=== PATIENT | female | born 1995 | race Caucasian/White ===

== ENCOUNTER 2023-11-26 15:32 | Outpatient (REF) | payer OTHER, SELFPAY ==
[2023-11-29 07:23] LABS: TS Negative Control Passed; TS Panel A 3; TS Panel B 1; TS Positive Control Passed; TSpotTB Negative (Negative)
[2023-11-29 21:57] LABS: Hepatitis BE Antibody NON-REACTIVE (NON-REACTIVE)
== END 2023-11-26 15:33 | disposition home or self-care (01) ==
LOC: HO.HKASLDS 15:32
PROVIDERS: Visit Provider Internal Medicine
DX: Z01.84 Encounter for antibody response examination (principal)
CPT/HCPCS: 36415; 86481; 86707; 86787

== ENCOUNTER 2023-12-06 13:54 | Outpatient (REF) | payer OTHER, SELFPAY ==
[2023-12-06 16:45] LABS: Amphetamine Screen Urine Not Detected (Not Detect); Barbiturates, Urine Not Detected (Not Detect); Benzodiazepines Screen Urine Not Detected (Not Detect); Buprenorphine Scr Not Detected (Not Detect); Cannabinoid Screen Urine Not Detected (Not Detect); Cocaine Screen Urine Not Detected (Not Detect); Fentanyl, urine Not Detected (Not Detect); Methadone Screen, Urine Not Detected (Not Detect); Opiate Screen Urine Not Detected (Not Detect); Oxycodone Screen Urine Not Detected (Not Detect); Phencyclidine Screen Urine Not Detected (Not Detect)
== END 2023-12-06 13:55 | disposition home or self-care (01) ==
LOC: HO.HMGCLDS 13:54
PROVIDERS: PCP Internal Medicine; Visit Provider Internal Medicine
DX: Z02.1 Encounter for pre-employment examination (principal); Z01.84 Encounter for antibody response examination
CPT/HCPCS: 80307; 86735; 86762; 86765

== ENCOUNTER 2024-05-11 09:43 | Outpatient (AMB) | payer OTHER, SELFPAY ==
--- NOTE | 2024-05-11 10:14 | A.OFFPC_ITS ---
Vital Signs 05/11/24 10:31 Height 5 ft 2 in Weight 227 lb BMI 41.5 BP 126/88 Blood Pressure Location Lt brachial Position Sitting Pulse 90 Pulse Source Pulse Oximeter Pulse Oximetry (%) 98 Oxygen Delivery Method Room Air Intake Visit Reasons: HOSPITAL [facility]ER-ANNUAL PE Intake Note: New patient visit Quarrying Specialist Required: No Allergies cat dander Allergy (Mild, Verified 05/11/24 10:15) congestion dog dander Allergy (Mild, Verified 05/11/24 10:15) congestion mold Allergy (Mild, Verified 05/11/24 10:15) congestion grass pollen Allergy (Unknown, Verified 05/11/24 10:15) Unknown house dust Allergy (Verified 05/11/24 10:15) congestion nuts Allergy (Unknown, Uncoded 05/11/24 10:15) Unknown Tobacco use date assessed: 05/11/24 Dental Screening Dental Screen Date: 05/11/24 Did you have a dental visit in the last 12 months?: No Did you have a dental problem in the last 6 months where you did not have access to dental care?: Yes Was dental information given to patient?: Patient has dentist HPI HPI Comments History of Present Illness Details 28 year old female with a past medical h istory of asthma, obesity, crohns, obesity presenting for physical exam. transfer from [facility] Asthma: Following with Dr Santizo. On trelegy, qvar, singulair, albuterol as needed Obesity: On phentermine 37.5mg daily. GI: Followed closely by GI. On azathioprine. Recommended dermatology appt. She does complain of chronic hyperhidrosis. 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 HEENT: Denies changes in vision and hearing. RESPIRATORY: Denies SOB and cough. CV: Denies palpitations and CP GI: Denies abdominal pain, nausea, vomiting and diarrhea. : Denies dysuria and urinary frequency. MSK: Denies new myalgia and joint pain. SKIN: Denies rash and pruritus. NEUROLOGICAL: Denies headache PSYCHIATRIC: Denies recent changes in mood. PHYSICAL EXAM: GENERAL: Alert and oriented x 3. NAD EYES: EOMI. Anicteric. HENT: Moist mucous membranes. No scleral icterus. No cervical lymphadenopathy. LUNGS: Clear to auscultation bilaterally. CARDIOVASCULAR: Regular rate and rhythm. No murmur. No JVD. ABDOMEN: Soft, non-tender +bs EXTREMITIES: No edema. Non-tender. SKIN: No rashes or lesions. Warm. NEUROLOGIC: No focal neurological deficits. CN II-XII grossly intact PSYCHIATRIC: Cooperative. Appropriate mood and affect [facility] Medical History (Updated 05/11/24 @ 15:15 by Oralia Multani MD) Perianal fistula Ileostomy in place Crohn disease C. difficile colitis Family History (Updated 05/11/24 @ 10:31 by Doris Alas [facility]) Mother Diabetes Hypertension Anxiety Depression Father Cancer Stroke Brother Mental disability Other FH: mental illness Social History (Updated 11/20/23 @ 12:30 by Lakia Tyler [facility]) Housing: Condominium Alcohol intake: current Alcohol intake frequency: a few times a month Patient Tobacco Use Status: Never used Tobacco e-Cigarette/Vaping Use: Never Used service: No Current occupational status: student Gender identity: Female Cognitive needs: No Hearing needs: No Vision needs: No Questionnaire PHQ-9 Over the last 2 weeks, how often have you been bothered by any of the following problems? 1. Little interest or pleasure in doing things: not at all 2. Feeling down, depressed, or hopeless: not at all 3. Trouble falling or staying asleep, or sleeping too much: several days 4. Feeling tired or having little energy: more than half the days 5. Poor appetite or overeating: not at all 6. Feeling bad about yourself - or that you are a failure or have let yourself or your family down: not at all 7. Trouble concentrating on things, such as reading the newspaper or watching television: not at all 8. Moving or speaking so slowly that other people could have noticed. Or the opposite - being so fidgety or restless that you have been moving around a lot more than usual: not at all 9. Thoughts that you would be better off or of hurting yourself in some way: not at all Total score: 3 Depression Screening Interpretation: Negative Depression Screening Done: Yes [id number] - PHQ-9 Billing: Yes Source: Developed by Drs. Federico Gandara, Lizzette Garcia, Natan Elizabeth and colleagues, with an educational shanita from [employer]. Thrive Questionnaire Date Thrive assessed: 05/08/24 I am a: Patient What is your living situation today?: I have a steady place to live Within the past 12 months, did the food you bought not last and you didn't have the money to get more?: Never true Within the past 12 months, did you worry whether your food would run out before you got money to buy more?: Never true Do you have trouble paying for medicines?: No Do you have trouble getting transportation to medical appointments?: No Do you have trouble paying your heating and electricity bill?: No Do you have trouble taking care of your child, family member or friend?: No Do you have trouble with day-to-day activities such as bathing, preparing meals, shopping, managing finances, etc.?: No Are you currently unemployed and looking for a job?: No Are you interested in more education?: No Please select the resources that you would like help with: None Currently or been in a relationship where the following occur: No concerns reported THRIVE Score: 0 AUDIT C Alcohol Use Questionnaire (AUDIT-C) 1. How often do you have a drink containing alcohol?: Monthly or less 2. How many drinks containing alcohol do you have on a typical day when you are drinking?: 1 or 2 3. How often do you have six or more drinks on one occasion?: Never Total Score: 1 MATT-7 AMB Questionnaire MATT-7 Feeling nervous, anxious, or on edge: 1 = Several days Not being able to stop or control worryin = Not at all Worrying too much about different things: 0 = Not at all Trouble relaxin = Several days Being so restless that it is hard to sit still: 0 = Not at all Becoming easily annoyed or irritable: 0 = Not at all Feeling afraid as if something awful might happen: 0 = Not at all Total MATT-7 score (0-4 normal; 5-9 mild; 10-14 moderate; 15-21 severe): 2 Source: Developed by Drs. Federico Gandara, Lizzette Garcia, Natan Elizabeth and colleagues, with an educational shanita from [employer]. ACT Questionnaire In the past 4 weeks, how much of the time did your asthma keep you from getting as much done at work, school or at home?: A little of the time During the past 4 weeks, how often have you had shortness of breath?: 1-2 times a week During the past 4 weeks, how often did your asthma symptoms wake you up at night or earlier than usual in the morning?: Not at all During the past 4 weeks, how often have you had to use your rescue inhaler or nebulizer medication?: 1-2 times a week How would you rate your asthma control during the past 4 weeks?: Well controlled ACT Interpretation: Positive Score: 19 Physical exam (Primary Care) Vital Signs: Last Vital Signs Pulse 90 05/11/24 10:31 BP 126/88 05/11/24 10:31 Pulse Ox 98 05/11/24 10:31 Oxygen Delivery Method Room Air 05/11/24 10:31 BMI result Body Mass Index 41.5 Tobacco/Smoking Status: Tobacco use Status Tobacco use date assessed 05/11/24 05/11/24 10:17 Patient Tobacco Use Status Never used Tobacco 05/11/24 10:15 e-Cigarette/Vaping Use Never Used 05/11/24 10:15 PHQ-9: PHQ-9 Score PHQ-9: Total score 3 05/11/24 15:09 Depression Screening Interpretation: Negative Thrive Assessment: Date of Thrive Assessment Date Thrive assessed 05/08/24 05/11/24 10:15 Currently or been in a relationship where the following occur: No concerns reported Coding Level of Care Code Est Pt Prev Care 18-39y([id number]) Diagnoses Physical exam Z00.00 Moderate persistent asthma without complication J45.40 Asthma complication type: uncomplicated Additional Codes Asthma Control Questionnaire - ACT Interpretation: Positive ([id number]) PHQ-9 - 49460 - PHQ-9 Billing: Yes ([id number]) Assessment & Plan Assessment & Plan (1) Physical exam: Code(s): Z00.00 - Encounter for general adult medical examination without abnormal findings Category: Medical Plan: Preventive measures discussed UTD (2) Moderate persistent asthma: Code(s): J45.40 - Moderate persistent asthma, uncomplicated Category: Medical Qualifiers: Asthma complication type: uncomplicated Qualified Code(s): J45.40 - Moderate persistent asthma, uncomplicated Plan: without exacerbation. stable on current medications Orders: Referrals Dermatology Referral R61 - Generalized hyperhidrosis, Z51.81 - Encounter for therapeutic drug level monitoring Medications: New montelukast 10 mg PO DAILY 90 tabs 3RF propranolol 10 mg PO BID 180 tabs 0RF ondansetron HCl 4 mg PO Q8H PRN 30 tabs 3RF nausea and vomiting aluminum chloride 20% (Drysol) 1 appl topical DAILY PRN 37.5 mL 3RF excessive sweating
[2024-05-11 10:31] VITALS: BP 126/88; PULSE 90; O2SAT 98; BMI 41.5
== END 2024-05-11 10:53 | disposition home or self-care (01) ==
PROVIDERS: PCP Internal Medicine; Visit Provider Internal Medicine
DX: Z00.00 Encounter for general adult medical examination without abnormal findings (principal); J45.40 Moderate persistent asthma, uncomplicated

== ENCOUNTER → 2024-05-11 09:43 | Outpatient (BNVA) | payer OTHER, SELFPAY | PROVIDERS: PCP Internal Medicine; Visit Provider Internal Medicine | DX: Z00.00 Encounter for general adult medical examination without abnormal findings (principal); J45.40 Moderate persistent asthma, uncomplicated; R61 Generalized hyperhidrosis | CPT/HCPCS: 96127; 96160 ==

== ENCOUNTER 2024-12-04 09:33 | Outpatient (AMB) | payer OTHER, SELFPAY ==
--- NOTE | 2024-12-04 09:37 | A.OFFPC_ITS ---
Vital Signs 12/04/24 09:41 Height 5 ft 2 in Weight 237 lb BMI 43.3 BP 126/86 Blood Pressure Location Lt brachial Position Sitting Respiration 14 Pulse 84 Pulse Source Pulse Oximeter Pulse Oximetry (%) 98 Oxygen Delivery Method Room Air Intake Visit Reasons: f/up Intake Note: Follow up. Stopped taking phentermine and propanolol on 09/16. Had surgery on 09/23 and was asked to stop phetermine, and never restarted. Had ileostomy prolapse revision Medical Delivery Driver Required: No Allergies cat dander Allergy (Mild, Verified 05/11/24 10:15) congestion dog dander Allergy (Mild, Verified 05/11/24 10:15) congestion mold Allergy (Mild, Verified 05/11/24 10:15) congestion grass pollen Allergy (Unknown, Verified 05/11/24 10:15) Unknown house dust Allergy (Verified 05/11/24 10:15) congestion nuts Allergy (Unknown, Uncoded 05/11/24 10:15) Unknown Tobacco use date assessed: 05/11/24 Dental Screening Dental Screen Date: 05/11/24 HPI HPI Comments History of Present Illness Details 29 year old female with a past medical h istory of asthma, obesity, crohns, obesity presenting for follow up Asthma: Following with Dr Santizo. On trelegy, qvar, singulair, albuterol as needed. Wants her to try trespire injection. Obesity: She was taking phentermine 37.5mg daily. Stopped prior to iliostomy revision. did not restart. Would like to try GLP if ok'd by GI GI: Followed closely by GI & surgery. She does complain of chronic hyperhidrosis. Had iliostomy revision surgery. On levsin prn Dermatology appt is pending Received flu vaccination ROS CONSTITUTIONAL: Denies weight loss, fever and chills. HEENT: Denies changes in vision and hearing. RESPIRATORY: Denies SOB and cough. CV: Denies palpitations and CP GI: Denies abdominal pain, nausea, vomiting and diarrhea. : Denies dysuria and urinary frequency. MSK: Denies new myalgia and joint pain. SKIN: Denies rash and pruritus. NEUROLOGICAL: Denies headache PSYCHIATRIC: anxiety PHYSICAL EXAM: GENERAL: Alert and oriented x 3. NAD EYES: EOMI. Anicteric. HENT: Moist mucous membranes. No scleral icterus. No cervical lymphadenopathy. LUNGS: Clear to auscultation bilaterally. CARDIOVASCULAR: Regular rate and rhythm. No murmur. No JVD. ABDOMEN: Soft, non-tender +bs EXTREMITIES: No edema. Non-tender. SKIN: No rashes or lesions. Warm. NEUROLOGIC: No focal neurological deficits. CN II-XII grossly intact PSYCHIATRIC: Cooperative. Appropriate mood and affect [facility] Medical History Perianal fistula Ileostomy in place Crohn disease C. difficile colitis Family History Mother Diabetes Hypertension Anxiety Depression Father Cancer Stroke Brother Mental disability Other FH: mental illness Social History Housing: Condominium Alcohol intake: current Alcohol intake frequency: a few times a month Patient Tobacco Use Status: Never used Tobacco e-Cigarette/Vaping Use: Never Used service: No Current occupational status: student Gender identity: Female Cognitive needs: No Hearing needs: No Vision needs: No Questionnaire Thrive Questionnaire Date Thrive assessed: 05/08/24 I am a: Patient What is your living situation today?: I have a steady place to live Within the past 12 months, did the food you bought not last and you didn't have the money to get more?: Never true Within the past 12 months, did you worry whether your food would run out before you got money to buy more?: Never true Do you have trouble paying for medicines?: No Do you have trouble getting transportation to medical appointments?: No Do you have trouble paying your heating and electricity bill?: No Do you have trouble taking care of your child, family member or friend?: No Do you have trouble with day-to-day activities such as bathing, preparing meals, shopping, managing finances, etc.?: No Are you currently unemployed and looking for a job?: No Are you interested in more education?: No Please select the resources that you would like help with: None Currently or been in a relationship where the following occur: No concerns reported THRIVE Score: 0 Physical exam (Primary Care) Vital Signs: Last Vital Signs Pulse 84 12/04/24 09:41 Resp 14 12/04/24 09:41 BP 126/86 12/04/24 09:41 Pulse Ox 98 12/04/24 09:41 Oxygen Delivery Method Room Air 12/04/24 09:41 BMI result Body Mass Index 43.3 Tobacco/Smoking Status: Tobacco use Status Tobacco use date assessed 05/11/24 12/04/24 09:44 Patient Tobacco Use Status Never used Tobacco 12/04/24 09:44 e-Cigarette/Vaping Use Never Used 12/04/24 09:44 Thrive Assessment: Date of Thrive Assessment Date Thrive assessed 05/08/24 12/04/24 09:44 Currently or been in a relationship where the following occur: No concerns reported Coding Level of Care Code Est Pt Level 4 (08907) Diagnoses Crohn's disease with complication, unspecified gastrointestinal tract location K50.919 Gastrointestinal tract location: unspecified location Digestive disease complication type: unspecified complication Ileostomy in place Z93.2 Obesity, unspecified class, unspecified obesity type, unspecified whether serious comorbidity present E66.9 Obesity type: unspecified obesity type Obesity classification: unspecified obesity classification Serious obesity comorbidity presence: unspecified whether serious comorbid ity present Anxiety F41.9 Assessment & Plan Assessment & Plan (1) Crohn disease: Code(s): K50.90 - Crohn's disease, unspecified, without complications Category: Medical Qualifiers: Gastrointestinal tract location: unspecified location Digestive disease complication type: unspecified complication Qualified Code(s): K50.919 - Crohn's disease, unspecified, with unspecified complications (2) Ileostomy in place: Code(s): Z93.2 - Ileostomy status Category: Medical (3) Obesity: Code(s): E66.9 - Obesity, unspecified Category: Medical Qualifiers: Obesity type: unspecified obesity type Obesity classification: unspecified obesity classification Serious obesity comorbidity presence: unspecified whether serious comorbidity present Qualified Code(s): E66.9 - Obesity, unspecified (4) Anxiety: Code(s): F41.9 - Anxiety disorder, unspecified Category: Medical Plan Abdominal cramping-continue levsin prn Asthma-stable Obesity-GLP ordered Medications: New Wegovy (semaglutide (weight loss)) administer weeks 1 through 4 of therapy 0.25 mg (0.5 mL) subcut QWEEK 2 mL 3RF NS E66.9 - Obesity, unspecified Zepbound (tirzepatide (weight loss)) for 4 weeks 2.5 mg (0.5 mL) subcut QWEEK 2 mL 1RF NS hyoscyamine sulfate (Levsin/SL) 0.125 mg sublingual BID-QID PRN 60 tabs 0RF dyspepsia R10.9 - Unspecified abdominal pain
[2024-12-04 09:41] VITALS: BP 126/86; PULSE 84; RESP 14; O2SAT 98; BMI 43.3
== END 2024-12-04 10:15 | disposition home or self-care (01) ==
LOC: HO.HMCFM 09:34
PROVIDERS: PCP Internal Medicine; Visit Provider Internal Medicine
DX: K50.919 Crohn's disease, unspecified, with unspecified complications (principal); Z93.2 Ileostomy status; E66.9 Obesity, unspecified; Z68.41 Body mass index [BMI] 40.0-44.9, adult; F41.9 Anxiety disorder, unspecified